=== PATIENT | male | born 1960 | race Caucasian/White ===

== ENCOUNTER 2022-06-24 17:19 | Emergency (ER) | payer OTHER, SELFPAY ==
[2022-06-24 17:37] VITALS: BP 177/75; PULSE 88; RESP 22; TEMP 36.7; O2SAT 95; BMI 28.2
--- NOTE | 2022-06-24 19:30 | XRR_ITS ---
PROCEDURE INFORMATION: Exam: XR Chest Exam date and time: 06/24/2022 7:41 PM Age: 61 years old Clinical indication: Other: High blood pressure; Prior surgery; Surgery type: Heart stents; Additional info: Cp TECHNIQUE: Imaging protocol: Radiologic exam of the chest. Views: 1 view. COMPARISON: CR XR chest 1V [id number] 11/27/2018 10:50 AM FINDINGS: Lungs: Unremarkable. No consolidation. Pleural spaces: Unremarkable. No pleural effusion. No pneumothorax. Heart/Mediastinum: Unremarkable. No cardiomegaly. Bones/joints: Unremarkable. XR/XR chest 1V portable [id number] IMPRESSION: No acute findings.
[2022-06-24 19:34] VITALS: BP 187/83; PULSE 73; RESP 15; O2SAT 96
[2022-06-24 19:58] LABS: Basophils % 0.4 %; Eosinophils # 0.2 10^3/uL (0.0-0.8); Eosinophils % 1.6 %; Hematocrit 45.3 % (42.0-52.0); Hemoglobin 14.8 g/dL (11.7-16.6); Lymphocytes # 1.3 10^3/uL (0.8-4.8); Lymphocytes % 12.3 %; Mean Corpuscular HGB Conc 32.7 g/dL (30.0-36.0); Mean Corpuscular Hemoglobin 29.3 pg (28.0-34.0); Mean Corpuscular Volume 89.7 fl (80-94); Mean Platelet Volume 8.7 fL (7.4-10.4); Monocytes # 0.7 10^3/uL (0.2-0.9); Monocytes % 6.8 %; Neutrophils # 8.38 10^3/uL (1.8-7.7); Neutrophils % 78.6 %; Nucleated Red Blood Cells % 0 %; Platelet Count 213 10^3/cmm (130-400); Red Blood Count 5.05 10^6/uL (4.1-5.3); Red Cell Distribution Width 12.4 % (12.1-15.1); White Blood Count 10.7 10^3/uL (4.0-10.0)
[2022-06-24 20:09] VITALS: BP 159/69; PULSE 67; O2SAT 98
[2022-06-24 20:14] LABS: INR 0.98 (0.8-1.2)
[2022-06-24 20:15] LABS: Partial Thromboplastin Time 27.8 SECONDS (23.9-36.7)
[2022-06-24 20:22] LABS: Troponin(5th) Baseline 12 ng/L (0-15)
[2022-06-24 20:30] LABS: Alanine Aminotransferase 15 U/L (0-41); Albumin Level 4.7 g/dL (3.5-5.2); Alkaline Phosphatase 51 U/L (40-130); Anion Gap 15.8 (5-19); Aspartate Amino Transferase 15 U/L (0-40); Blood Urea Nitrogen 10 mg/dL (8-23); Calcium 9.2 mg/dL (8.5-10.5); Carbon Dioxide 25 mmol/L (22-29); Chloride 105 mmol/L (98-107); Globulin 1.8 g/dL (1.3-4.6); Glomerular Filtration Rate 114.6 mL/min (90-130); Glucose 120 mg/dL (65-115); NT Pro B Type Natriuretic Pept 36 pg/mL (0-125); Osmolality Calculated 294 mOsm/kg (285-295); Potassium 3.8 mmol/L (3.5-5.1); Sodium 142 mmol/L (136-145); Thyroid Stimulating Hormone 1.92 uIU/mL (0.27-4.20); Total Bilirubin 0.4 mg/dL (0.15-1.2); Total Protein 6.5 g/dL (6.6-8.7)
--- NOTE | 2022-06-24 20:50 | ECG_ITS ---
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1960 Requested By: Griffin Briggs Order Number: [id number] Reading MD: CHAYA POSADA Measurements Intervals [place] Rate: 69 P: 55 [place]: 160 QRS: -36 QRSD: 153 T: 30 QT: 411 QTc: 441 Interpretive Statements SINUS RHYTHM LEFT AXIS DEVIATION [QRS AXIS < -30] RIGHT BUNDLE BRANCH BLOCK [120+ ms QRS DURATION, UPRIGHT V1, 40+ ms S IN I/aVL/V4/V5/V6] POSSIBLE ANTERIOR MYOCARDIAL INFARCTION , OF INDETERMINATE AGE [30 ms Q WAVE IN V3/V4, OR R < 0.2 mV IN V4] Compared to ECG 11/27/2018 10:27:06 Right bundle-branch block now present Myocardial infarct finding now present Sinus bradycardia no longer present Incomplete right bundle-branch block no longer present Electronically Signed On 06-24-2022 23:31:41 CDT by CHAYA POSADA [id number]
[2022-06-24 21:55] VITALS: BP 146/65; PULSE 63; O2SAT 94
--- NOTE | 2022-06-24 21:57 | W.ED.ARRPALP ---
HPI - Arrhythmia/Palpitations General: Chief Complaint: Arrhythmia/Palpitations Stated Complaint: high B/P, heart racing Time Seen by Provider: 06/24/22 20:11 Source: patient History of Present Illness: 61-year-old male with a prior history of coronary disease. He presents with feeling that his blood pressure was high, and some palpitations earlier in the evening. He denies chest pain. He denies significant shortness of breath. This happened to him 5 days ago as well, and seem to resolve on its own after his blood pressure medication. He took his blood pressure medication this evening as well, and is feeling better now. No more feelings of palpitations or flushing MD complaint: heart racing Onset (ago): hour(s) Duration: now resolved Severity: moderate Context: occurred during rest Associated symptoms: Deny cough, diaphoresis, nausea, pre-syncope, short of breath, syncope or vomiting Review of Systems Const: Denies: fever(s) or diaphoresis ENMT: Denies: throat pain Card: Reports: palpitations; Denies: chest pain, irregular heart rhythm, syncope or pre-syncope Resp: Denies: dyspnea, productive cough or non-productive cough GI: Denies: abdominal pain, nausea or vomiting : Denies: flank pain Neuro: Reports: headache(s) (Improved) Physical Exam Const: COMMON NORMALS: no acute distress GENERAL APPEARANCE: cooperative; not ill appearing and not frail appearing HENMT: COMMON NORMALS: normocephalic, atraumatic and Normal external nose present HEAD & SCALP: normocephalic and atraumatic FACE & SINUS: normal facial exam and face symmetric NOSE: Normal external nose present Eye: COMMON NORMALS: Equal, round and reactive pupils present and EOMs intact bilaterally PUPIL: Yes Equal, round and reactive pupils present Neck/C-Spine: GENERAL: Yes trachea midline Chest: CHEST: Yes Symmetrical chest wall rise Resp: COMMON NORMALS: normal respiratory effort, No retractions, No use of accessory muscles and clear to auscultation bilaterally AUSCULTATION: clear to auscultation bilaterally Cardio: COMMON NORMALS: regular rate and regular rhythm RATE: regular rate RHYTHM: regular rhythm GI: COMMON NORMALS: Normal to inspection, nondistended, normoactive bowel sounds present Extremity: COMMON NORMALS: no pedal edema Neuro: STEVEN COMA SCALE: document GCS findings Steven coma scale eye opening: Spontaneous Steven coma scale verbal response: Orientated [place] coma scale motor response: Obey commands [place] coma scale total score: 15 SENSORY EXAM: Yes extremities (intact) Psych: COMMON NORMALS: speech normal SPEECH: Yes normal speech Skin: COMMON NORMALS: no rashes or lesions noted GENERAL SKIN EXAM: no rashes or lesions noted Course Vital Signs: Vital signs: Vital Signs Temperature 98.0 F 06/24/22 17:37 Pulse Rate 66 06/24/22 22:52 Respiratory Rate 15 06/24/22 19:34 Blood Pressure 151/77 06/24/22 22:52 Pulse Oximetry 97 06/24/22 22:52 Oxygen Delivery Me thod 06/24/22 22:52 MDM - Arrhythmia/Palpitations Medical Decision Making 61-year-old male with a history of heart disease. He presents with palpitations. He never complained of chest pain. Palpitations have resolved at this point. He was hypertensive at home, currently blood pressure is 146/65. He is asymptomatic at this point. His chest x-ray is normal. His EKG has showed a sinus rhythm with essentially normal axis, but right bundle and left anterior fascicular blocks are present. No definite ST wave changes otherwise. He does have Q waves present anteriorly no EKGs available for prior comparison. His troponin however remain negative at 2 hours. With resolution in his symptoms, benign laboratory otherwise, he will be allowed home. He will be given amlodipine to take as needed for his blood pressure should he have problems with blood pressure. He is encouraged to follow-up. Lab Data 06/24/22 19:52 06/24/22 19:52 Radiology Impressions Chest X-Ray 06/24/22 19:30 IMPRESSION: No acute findings. Laboratory Results WBC 10.7 10^3/uL (4.0-10.0) H 06/24/22 19:52 RBC 5.05 10^6/uL (4.1-5.3) 06/24/22 19:52 Hgb 14.8 g/dL (11.7-16.6) 06/24/22 19:52 Hct 45.3 % (42.0-52.0) 06/24/22 19:52 MCV 89.7 fl (80-94) 06/24/22 19:52 MCH 29.3 pg (28.0-34.0) 06/24/22 19:52 MCHC 32.7 g/dL (30.0-36.0) 06/24/22 19:52 RDW 12.4 % (12.1-15.1) 06/24/22 19:52 Plt Count 213 10^3/cmm (130-400) 06/24/22 19:52 MPV 8.7 fL (7.4-10.4) 06/24/22 19:52 Neut % (Auto) 78.6 % 06/24/22 19:52 Lymph % (Auto) 12.3 % 06/24/22 19:52 [place] % (Auto) 6.8 % 06/24/22 19:52 Eos % (Auto) 1.6 % 06/24/22 19:52 Baso % (Auto) 0.4 % 06/24/22 19:52 Neut # (Auto) 8.38 10^3/uL (1.8-7.7) H 06/24/22 19:52 Lymph # (Auto) 1.3 10^3/uL (0.8-4.8) 06/24/22 19:52 [place] # (Auto) 0.7 10^3/uL (0.2-0.9) 06/24/22 19:52 Eos # (Auto) 0.2 10^3/uL (0.0-0.8) 06/24/22 19:52 Baso # (Auto) 0.0 10^3/uL (0.0-0.1) 06/24/22 19:52 Nucleated RBC % (auto) 0 % 06/24/22 19:52 Nucleated RBCs # 0.0 /100WBC 06/24/22 19:52 PT 13.30 SECONDS (12.1-14.9) 06/24/22 19:52 INR 0.98 (0.8-1.2) 06/24/22 19:52 APTT 27.8 SECONDS (23.9-36.7) 06/24/22 19:52 Sodium 142 mmol/L (136-145) 06/24/22 19:52 Potassium 3.8 mmol/L (3.5-5.1) 06/24/22 19:52 Chloride 105 mmol/L (98-107) 06/24/22 19:52 Carbon Dioxide 25 mmol/L (22-29) 06/24/22 19:52 Anion Gap 15.8 (5-19) 06/24/22 19:52 BUN 10 mg/dL (8-23) 06/24/22 19:52 Creatinine 0.7 mg/dL (0.7-1.2) 06/24/22 19:52 GFR Calculation 114.6 mL/min (90-130) 06/24/22 19:52 Glucose 120 mg/dL (65-115) H 06/24/22 19:52 Calculated Osmolality 294 mOsm/kg (285-295) 06/24/22 19:52 Calcium 9.2 mg/dL (8.5-10.5) 06/24/22 19:52 Total Bilirubin 0.4 mg/dL (0.15-1.2) 06/24/22 19:52 AST 15 U/L (0-40) 06/24/22 19:52 ALT 15 U/L (0-41) 06/24/22 19:52 Alkaline Phosphatase 51 U/L (40-130) 06/24/22 19:52 Troponin T Baseline 12 ng/L (0-15) 06/24/22 19:52 Troponin T 120 Minute 9.97 ng/L (0-15) 06/24/22 21:55 Delta Troponin T -2.03 ABS# (0-10) L 06/24/22 21:55 NT-Pro-B Natriuret Pep 36 pg/mL (0-125) 06/24/22 19:52 Total Protein 6.5 g/dL (6.6-8.7) L 06/24/22 19:52 Albumin 4.7 g/dL (3.5-5.2) 06/24/22 19:52 Globulin 1.8 g/dL (1.3-4.6) 06/24/22 19:52 TSH 1.92 uIU/mL (0.27-4.20) 06/24/22 19:52 Discharge Plan Discharge Patient Disposition: Home Clinical Impression: Palpitations, Hypertension Condition: Stable Prescriptions: New amlodipine 5 mg tablet 5 mg PO DAILY Qty: 30 0RF Discharge Orders: Discharge ED (Routine); Ordered 06/24/22 Ordered By: Griffin Campbell Referrals: Chrissie Stern MD [Primary Care Provider] - 1-3 days Patient Instructions: Heart Palpitations (ED), Hypertension (ED) Activity Restrictions/Additional Instructions: Check your blood pressure twice daily. If your numbers are staying above 150/90, start the medication you were prescribed. You do not have to take the medication if blood pressures are below this number. Wait at least an hour to an hour and a half before taking your blood pressure again following having to take the medication. Follow-up with your doctor this coming week. They may wish to perform more outpatient testing. Coding Level of Care Code ED Racing Manager for Dennise Trotter
[2022-06-24 22:19] LABS: Troponin 5 2HR 9.97 ng/L (0-15)
[2022-06-24 22:30] LABS: Troponin 5 2HR Delta -2.03 ABS# (0-10)
[2022-06-24 22:52] VITALS: BP 151/77; PULSE 66; O2SAT 97
== END 2022-06-24 23:15 | disposition home or self-care (01) ==
PROVIDERS: Emergency Provider Emergency Medicine; PCP Family Medicine
DX: I10 Essential (primary) hypertension (principal); R00.2 Palpitations; I25.10 Atherosclerotic heart disease of native coronary artery without angina pectoris; I45.10 Unspecified right bundle-branch block
CPT/HCPCS: 36415; 71045; 80053; 83880; 84443; 84484; 85025; 85610; 85730; 93005; 99285

== ENCOUNTER 2023-05-09 02:58 | Emergency (ER) | payer OTHER, SELFPAY ==
[2023-05-09 03:00] VITALS: BP 124/65; PULSE 75; RESP 12; TEMP 36.4; O2SAT 94; BMI 30.7
--- NOTE | 2023-05-09 03:03 | ECG_ITS ---
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 Measurements Intervals [place] Rate: 78 P: 68 MD: 165 QRS: -65 QRSD: 142 T: 28 QT: 405 QTc: 461 Interpretive Statements SINUS RHYTHM RIGHT BUNDLE BRANCH BLOCK [120+ ms QRS DURATION, UPRIGHT V1, 40+ ms S IN I/aVL/V4/V5/V6] LEFT ANTERIOR FASCICULAR BLOCK [QRS AXIS <= -45, QR IN I, RS IN II] POSSIBLE ANTERIOR MYOCARDIAL INFARCTION , OF INDETERMINATE AGE [30 ms Q WAVE IN V3/V4, OR R < 0.2 mV IN V4] MODERATE T-WAVE ABNORMALITY, CONSIDER LATERAL ISCHEMIA [-0.1+ mV T-WAVE IN I/aVL/V5/V6] Compared to ECG 06/24/2022 20:50:23 Left anterior fascicular block now present Left-axis deviation no longer present Myocardial infarct finding still present Electronically Signed On 05-09-2023 18:32:08 PROGRESSIVE DIE MAKER by Dustin Mejia M.D. [id number]
--- NOTE | 2023-05-09 03:05 | XRR_ITS ---
PROCEDURE INFORMATION: Exam: XR Chest Exam date and time: 05/09/2023 3:19 AM Age: 62 years old Clinical indication: Chest wall pain; Prior surgery; Surgery date: 6+ months; Surgery type: 3 stents in heart; Additional info: Chest pain TECHNIQUE: Imaging protocol: Radiologic exam of the chest. Views: 1 view. COMPARISON: CR XR chest 1V portable [id number] 06/24/2022 7:41 PM FINDINGS: Lungs: Unremarkable. No consolidation. Pleural spaces: Unremarkable. No pleural effusion. No pneumothorax. Heart/Mediastinum: Unremarkable. No cardiomegaly. Bones/joints: Unremarkable. XR/XR chest 1V portable [id number] IMPRESSION: No acute findings.
--- NOTE | 2023-05-09 03:06 | ED_ITS ---
HPI - Chest Pain 2 General: Chief Complaint: Chest Pain Stated Complaint: CP Time Seen by Provider: 05/09/23 03:05 History of Present Illness: Patient presents to the ER by EMS for chest pain. Patient woke up in the middle of the night about 1:00 in felt some epigastric pressure like he needed to burp. And then pressure started radiating down to his arms and legs. Patient stated that this was similar symptoms when he had a heart attack back around around 2002. Patient does have his couple stents from that heart attack. Patient used to see Dr. Gtz but has not seen him since 2007. Patient denies any nausea, vomiting, shortness of breath, diaphoresis. EMS gave the patient 1 nitro, 324 mg aspirin, and 1 inch Nitropaste. This reduced the pressure down from 7 to about a 2. Review of Systems 2 General: Reports: 10 or more systems reviewed and unremarkable except in HPI and below Physical Exam 2 Const: COMMON NORMALS: no acute distress, average body habitus, patient oriented x3, no limitations, healthy appearing, alert and well nourished HENMT: COMMON NORMALS: normocephalic, atraumatic, hearing grossly normal bilaterally, external ears normal, Normal external nose present, moist oral mucous membranes and oropharynx normal HEAD & SCALP: normocephalic and atraumatic NOSE: Normal external nose present EXTERNAL EAR: Yes external ears normal Neck/C-Spine: COMMON NORMALS: full ROM, no lymphadenopathy, supple, no meningeal signs, no JVD and Thyroid normal THYROID: Thyroid normal Chest: COMMONS NORMALS: normal inspection of the chest and normal palpation of entire chest wall Resp: COMMON NORMALS: normal respiratory effort, No retractions, No use of accessory muscles and clear to auscultation bilaterally AUSCULTATION: clear to auscultation bilaterally Cardio: COMMON NORMALS: no JVD, regular rate, regular rhythm, S1 normal heart sound present, S2 normal heart sound present, No gallops present (Cardio), No clicks present (Cardio), No murmurs present (Cardio) and No rub (Cardio) R ATE: regular rate RHYTHM: regular rhythm HEART SOUNDS: S1 normal heart sound present and S2 normal heart sound present GI: COMMON NORMALS: Normal to inspection, nondistended, normoactive bowel sounds present, Soft to palpation, non-tender, No hepatosplenomegaly present and no masses PALPATION: Yes Soft to palpation and Yes No hepatosplenomegaly present Extremity: NARRATIVE EXTREMITY EXAM: No edema bilateral lower extremities Neuro: COMMON NORMALS: patient oriented x3 SENSORIUM/ORIENTATION: Yes alert MENINGEAL SIGNS: Yes no meningeal signs Course 2 Vital Signs: Vital signs: Vital Signs Temperature 97.6 F 05/09/23 05:35 Pulse Rate 73 05/09/23 05:35 Respiratory Rate 16 05/09/23 05:35 Blood Pressure 130/65 05/09/23 05:35 Pulse Oximetry 95 05/09/23 05:35 Oxygen Delivery Me thod Room Air 05/09/23 03:00 MDM - Chest Pain Medical Decision Making Patient presents the ER with chest pain. Patient was worked up in a standard chest pain fashion with serial EKGs, serial lab work, chest x-ray, lab work showed potassium of 3.2 and blood glucose of 174, otherwise unremarkable serial troponins unremarkable, chest x-ray no acute findings. Patient be discharged home to follow-up with his PCP within next 7 days for further evaluation and treatment. Differential Diagnosis Unlikely acute massive pulmonary embolism, acute respiratory failure, acute myocardial infarction, cardiac arrest or sudden cardiac Medical Records I reviewed the patient's medical records. Lab Data I reviewed the patient's lab results. 05/09/23 02:45 05/09/23 02:45 Radiology Impressions Chest X-Ray 05/09/23 03:05 IMPRESSION: No acute findings. Laboratory Results WBC 5.31 10^3/uL (3.29-11.43) 05/09/23 02:45 RBC 5.62 10^6/uL (3.85-5.65) 05/09/23 02:45 Hgb 15.90 g/dL (11.27-16.99) 05/09/23 02:45 Hct 46.2 % (37-53) 05/09/23 02:45 MCV 82.2 fl (82-101) 05/09/23 02:45 MCH 28.3 pg (27-33) 05/09/23 02:45 MCHC 34.4 g/dL (30-55) 05/09/23 02:45 RDW 13.8 % (12.1-15.1) 05/09/23 02:45 Plt Count 230 10^3/cmm (157-399) 05/09/23 02:45 MPV 8.4 fL (7.4-10.4) 05/09/23 02:45 Neut % (Auto) 49.9 % 05/09/23 02:45 Lymph % (Auto) 33.5 % 05/09/23 02:45 [place] % (Auto) 9.6 % 05/09/23 02:45 Eos % (Auto) 5.3 % 05/09/23 02:45 Baso % (Auto) 0.9 % 05/09/23 02:45 Neut # (Auto) 2.65 10^3/uL (1.8-7.7) 05/09/23 02:45 Lymph # (Auto) 1.8 10^3/uL (0.8-4.8) 05/09/23 02:45 [place] # (Auto) 0.5 10^3/uL (0.2-0.9) 05/09/23 02:45 Eos # (Auto) 0.3 10^3/uL (0.0-0.8) 05/09/23 02:45 Baso # (Auto) 0.1 10^3/uL (0.0-0.1) 05/09/23 02:45 Nucleated RBC % (auto) 0 % 05/09/23 02:45 Nucleated RBCs # 0.0 /100WBC 05/09/23 02:45 PT 12.00 SECONDS (12.1-14.9) L 05/09/23 02:45 INR 0.86 (0.8-1.2) 05/09/23 02:45 Sodium 142 mmol/L (136-145) 05/09/23 02:45 Potassium 3.2 mmol/L (3.5-5.1) L 05/09/23 02:45 Chloride 103 mmol/L (98-107) 05/09/23 02:45 Carbon Dioxide 25 mmol/L (22-29) 05/09/23 02:45 Anion Gap 17.2 (5-19) 05/09/23 02:45 BUN 12 mg/dL (8-23) 05/09/23 02:45 Creatinine 0.8 mg/dL (0.7-1.2) 05/09/23 02:45 GFR Calculation 98.0 mL/min (90-130) 05/09/23 02:45 Glucose 174 mg/dL (65-115) H 05/09/23 02:45 Calculated Osmolality 298 mOsm/kg (285-295) H 05/09/23 02:45 Calcium 9.5 mg/dL (8.5-10.5) 05/09/23 02:45 Total Bilirubin 0.5 mg/dL (0.15-1.2) 05/09/23 02:45 AST 24 U/L (0-40) 05/09/23 02:45 ALT 25 U/L (0-41) 05/09/23 02:45 Alkaline Phosphatase 53 U/L (40-130) 05/09/23 02:45 Troponin T Baseline 7 ng/L (0-15) 05/09/23 02:45 Troponin T 120 Minute 7.65 ng/L (0-15) 05/09/23 04:41 Delta Troponin T 0.65 ABS# (0-10) 05/09/23 04:41 Total Protein 7.5 g/dL (6.6-8.7) 05/09/23 02:45 Albumin 4.7 g/dL (3.5-5.2) 05/09/23 02:45 Globulin 2.8 g/dL (1.3-4.6) 05/09/23 02:45 All radiology interpretation(s) finalized by discharge EKG Data EKG 1: I personally reviewed and interpreted this EKG as follows: EKG interpretation date: 05/09/23 EKG interpretation time: 03:03 Prior EKG tracings: available for review Interpretation: EKG showed ventricular rate 78 bpm, TN interval 165, QRS duration 142, QTc of 438, sinus rhythm, right bundle branch block, left anterior fascicular block, EKG 2: I personally reviewed and interpreted this EKG as follows: EKG interpretation date: 05/09/23 EKG interpretation time: 04:39 Prior EKG tracings: available for review Interpretation: Ventricular rate 71 bpm, TN interval 162, QRS duration 151, QTc of 435, sinus rhythm, right bundle branch block, left anterior fascicular block Discharge Plan Discharge Patient Disposition: Home Clinical Impression: Atypical chest pain Condition: Stable Prescriptions: No Action amlodipine 5 mg tablet 5 mg PO DAILY Qty: 30 0RF Discharge Orders: Discharge ED (Routine); Ordered 05/09/23 Ordered By: Uli Ackerman Referrals: Chrissie Stern MD [Primary Care Provider] - 1 week Patient Instructions: Chest Pain (ED) Activity Restrictions/Additional Instructions: Your evaluation in ER did not show any cardiac cause for your chest pain. Is thought to be noncardiac in nature however you may benefit from further workup. Please follow-up with your family practice physician within the next 7 days for further evaluation and treatment. Coding Level of Care Code ED Fence Installer Foreman for Dennise Trotter
[2023-05-09 03:15] LABS: Basophils # 0.1 10^3/uL (0.0-0.1); Basophils % 0.9 %; Eosinophils # 0.3 10^3/uL (0.0-0.8); Eosinophils % 5.3 %; Hematocrit 46.2 % (37-53); Lymphocytes # 1.8 10^3/uL (0.8-4.8); Lymphocytes % 33.5 %; Mean Corpuscular HGB Conc 34.4 g/dL (30-55); Mean Corpuscular Hemoglobin 28.3 pg (27-33); Mean Corpuscular Volume 82.2 fl (82-101); Mean Platelet Volume 8.4 fL (7.4-10.4); Monocytes # 0.5 10^3/uL (0.2-0.9); Monocytes % 9.6 %; Neutrophils # 2.65 10^3/uL (1.8-7.7); Neutrophils % 49.9 %; Nucleated Red Blood Cells % 0 %; Platelet Count 230 10^3/cmm (157-399); Red Blood Count 5.62 10^6/uL (3.85-5.65); Red Cell Distribution Width 13.8 % (12.1-15.1); White Blood Count 5.31 10^3/uL (3.29-11.43)
[2023-05-09 03:25] LABS: INR 0.86 (0.8-1.2)
[2023-05-09 03:33] LABS: Troponin(5th) Baseline 7 ng/L (0-15)
[2023-05-09 03:36] LABS: Alanine Aminotransferase 25 U/L (0-41); Albumin Level 4.7 g/dL (3.5-5.2); Alkaline Phosphatase 53 U/L (40-130); Anion Gap 17.2 (5-19); Aspartate Amino Transferase 24 U/L (0-40); Blood Urea Nitrogen 12 mg/dL (8-23); Calcium 9.5 mg/dL (8.5-10.5); Carbon Dioxide 25 mmol/L (22-29); Chloride 103 mmol/L (98-107); Globulin 2.8 g/dL (1.3-4.6); Glucose 174 mg/dL (65-115); Osmolality Calculated 298 mOsm/kg (285-295); Potassium 3.2 mmol/L (3.5-5.1); Sodium 142 mmol/L (136-145); Total Bilirubin 0.5 mg/dL (0.15-1.2); Total Protein 7.5 g/dL (6.6-8.7)
[2023-05-09 04:14] VITALS: BP 119/59; PULSE 73; RESP 16; O2SAT 94
[2023-05-09 04:54] VITALS: BP 130/65; PULSE 73; RESP 16; O2SAT 95
--- NOTE | 2023-05-09 05:05 | ECG_ITS ---
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 Measurements Intervals [place] Rate: 71 P: 55 [place]: 162 QRS: -61 QRSD: 151 T: 12 QT: 413 QTc: 449 Interpretive Statements SINUS RHYTHM RIGHT BUNDLE BRANCH BLOCK [120+ ms QRS DURATION, UPRIGHT V1, 40+ ms S IN I/aVL/V4/V5/V6] LEFT ANTERIOR FASCICULAR BLOCK [QRS AXIS <= -45, QR IN I, RS IN II] POSSIBLE ANTEROSEPTAL MYOCARDIAL INFARCTION , OF INDETERMINATE AGE [30 ms Q WAVE IN V1-V4] MODERATE T-WAVE ABNORMALITY, CONSIDER LATERAL ISCHEMIA [-0.1+ mV T-WAVE IN I/aVL/V5/V6] Compared to ECG 06/24/2022 20:50:23 Left anterior fascicular block now present T-wave abnormality now present Possible ischemia now present Left-axis deviation no longer present Myocardial infarct finding still present Electronically Signed On 05-09-2023 18:34:53 POLICY INTERN by Dustin Mejia M.D. [id number]
[2023-05-09 05:09] LABS: Troponin 5 2HR 7.65 ng/L (0-15); Troponin 5 2HR Delta 0.65 ABS# (0-10)
[2023-05-09 05:35] VITALS: BP 130/65; PULSE 73; RESP 16; TEMP 36.4; O2SAT 95
== END 2023-05-09 05:36 | disposition home or self-care (01) ==
PROVIDERS: Emergency Provider Emergency Medicine; PCP Family Medicine
DX: R07.89 Other chest pain (principal)
CPT/HCPCS: 71045; 80053; 84484; 85025; 85610; 93005; 99285

== ENCOUNTER 2024-08-21 11:57 | Emergency (ER) | payer OTHER, SELFPAY ==
[2024-08-21] VITALS (10 sets, daily range): BP systolic 136–174; BP diastolic 63–99; PULSE 57–71; RESP 17; TEMP 36.6; O2SAT 94–98; BMI 33.9
--- NOTE | 2024-08-21 12:07 | ECG_ITS ---
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: : 1960 Requested By: Carlos Enrique Mulligan Order Number: [id number] Reading MD: CHAYA POSADA Measurements Intervals [place] Rate: 68 P: 62 [place]: 165 QRS: -80 QRSD: 154 T: 70 QT: 411 QTc: 439 Interpretive Statements SINUS RHYTHM RIGHT BUNDLE BRANCH BLOCK [120+ ms QRS DURATION, UPRIGHT V1, 40+ ms S IN I/aVL/V4/V5/V6] LEFT ANTERIOR FASCICULAR BLOCK [QRS AXIS <= -45, QR IN I, RS IN II] POSSIBLE ANTERIOR MYOCARDIAL INFARCTION , OF INDETERMINATE AGE [30 ms Q WAVE IN V3/V4, OR R < 0.2 mV IN V4] Compared to ECG 05/09/2023 04:39:21 T-wave abnormality no longer present Possible ischemia no longer present Myocardial infarct finding still present Electronically Signed On 08-21-2024 23:27:41 CDT by CHAYA POSADA [email or web address]
--- NOTE | 2024-08-21 16:09 | XRR_ITS ---
PROCEDURE INFORMATION: Exam: XR Chest Exam date and time: 08/21/2024 4:10 PM Age: 63 years old Clinical indication: Pain; Chest pressure; Prior surgery; Surgery date: 6+ months; Surgery type: Cardiac stents; Additional info: Chest pain TECHNIQUE: Imaging protocol: Radiologic exam of the chest. Views: 1 view. COMPARISON: CR XR chest 1V portable [id number] 05/09/2023 3:19 AM FINDINGS: Lungs: Unremarkable. No consolidation. Pleural spaces: Unremarkable. No pleural effusion. No pneumothorax. Heart/Mediastinum: Unremarkable. No cardiomegaly. Bones/joints: Unremarkable. XR/XR chest 1V portable [id number] IMPRESSION: No acute findings.
[2024-08-21] MEDS: lidocaine 2% viscous 15 ML, aluminum-mag hydrox-simethicon 30 ML, sucralfate oral liq 1 GM PO (16:26)
--- NOTE | 2024-08-21 16:30 | CTR_ITS ---
PROCEDURE INFORMATION: Exam: CT Abdomen And Pelvis Without Contrast Exam date and time: 08/21/2024 4:47 PM Age: 63 years old Clinical indication: Abdominal pain; Additional info: Belly pain, increased burping TECHNIQUE: Imaging protocol: Computed tomography of the abdomen and pelvis without contrast. Radiation optimization: All CT scans at this facility use at least one of these dose optimization techniques: automated exposure control; mA and/or kV adjustment per patient size (includes targeted exams where dose is matched to clinical indication); or iterative reconstruction. COMPARISON: CR XR chest 1V portable [id number] 08/21/2024 4:10 PM RADIATION DOSE METRICS: Total DLP (mGy-cm): 798.66 FINDINGS: Liver: Hepatic steatosis. No significant focal hepatic lesions. Gallbladder and biliary ducts: Normal. No calcified stones. No ductal dilation. Pancreas: Normal. No ductal dilation. Spleen: Normal. No splenomegaly. Adrenal glands: Normal. No mass. Kidneys and ureters: Punctate nonobstructing right intrarenal stone measuring 3 mm. Simple cysts arising from the superior pole of the right kidney measuring up to 4.2 cm. No hydronephrosis. No suspicious renal masses. Stomach and bowel: Normal caliber of the bowel without evidence of obstruction. No focal bowel wall thickening or inflammation. Sigmoid colon diverticulosis without CT evidence of acute diverticulitis. Anastomotic suture line at the distal sigmoid colon. Appendix: Appendix not visualized and is likely surgically absent. Intraperitoneal space: Unremarkable. No free air. No significant fluid collection. Vasculature: Unremarkable. No abdominal aortic aneurysm. Lymph nodes: Unremarkable. No enlarged lymph nodes. Urinary bladder: Unremarkable as visualized. Reproductive: Nonspecific prostatic enlargement. Bones/joints: Unremarkable. No acute fracture. Soft tissues: Unremarkable. CT/CT abdomen pelvis wo con [id number] IMPRESSION: 1. No acute cardiopulmonary findings radiographically. 2. Sigmoid colon diverticulosis without CT evidence of acute diverticulitis. 3. Nonspecific prostatic enlargement. 4. Punctate nonobstructing right intrarenal stone measuring 3 mm. 5. Simple cysts arising from the superior pole of the right kidney measuring up to 4.2 cm. 6. Hepatic steatosis. COMMENTS: Consistent with the [employer]'s Incidental Findings Committee white paper (J Am Jl Radiol 2018): Any incidental renal lesion less than 1 cm or classified as too small to characterize, or any incidental cystic renal lesion characterized as simple-appearing, is likely benign. No follow-up imaging is recommended for these lesions per consensus recommendations based on imaging criteria.
[2024-08-21 16:33] LABS: Basophils # 0.1 10^3/uL (0.0-0.1); Basophils % 0.8 %; Eosinophils # 0.2 10^3/uL (0.0-0.8); Eosinophils % 2.6 %; Hematocrit 48.9 % (37-53); Lymphocytes # 2.6 10^3/uL (0.8-4.8); Lymphocytes % 33.8 %; Mean Corpuscular HGB Conc 32.9 g/dL (30-55); Mean Corpuscular Hemoglobin 29.5 pg (27-33); Mean Corpuscular Volume 89.6 fl (82-101); Monocytes # 0.5 10^3/uL (0.2-0.9); Monocytes % 6.5 %; Neutrophils # 4.22 10^3/uL (1.8-7.7); Neutrophils % 55.9 %; Nucleated Red Blood Cells % 0 %; Platelet Count 198 10^3/cmm (157-399); Red Blood Count 5.46 10^6/uL (3.85-5.65); Red Cell Distribution Width 12.7 % (12.1-15.1); White Blood Count 7.55 10^3/uL (3.29-11.43)
[2024-08-21 16:57] LABS: Anion Gap 20.1 (5-19); Blood Urea Nitrogen 13 mg/dL (8-23); Calcium 9.5 mg/dL (8.5-10.5); Carbon Dioxide 21 mmol/L (22-29); Chloride 105 mmol/L (98-107); Creatinine Clr Calc Pharmacy 116.6941; Glomerular Filtration Rate 113.9 mL/min (90-130); Glucose 87 mg/dL (65-115); Osmolality Calculated 293 mOsm/kg (285-295); Potassium 4.1 mmol/L (3.5-5.1); Sodium 142 mmol/L (136-145); Troponin(5th) Baseline 41 ng/L (0-15)
--- NOTE | 2024-08-21 18:09 | ECG_ITS ---
[employer] ([employer] Test Date: 2024-08-21 Pat Name: Carlin Dumas Department: Room: Gender: Male [employer]: : 1960 Requested By: Travis Mcgill Order Number: [id number] Keith MD: CHAYA POSADA Measurements Intervals [place] Rate: 54 P: 66 MT: 171 QRS: -75 QRSD: 160 T: 62 QT: 446 QTc: 425 Interpretive Statements SINUS BRADYCARDIA RIGHT BUNDLE BRANCH BLOCK [120+ ms QRS DURATION, UPRIGHT V1, 40+ ms S IN I/aVL/V4/V5/V6] LEFT ANTERIOR FASCICULAR BLOCK [QRS AXIS <= -45, QR IN I, RS IN II] POSSIBLE ANTERIOR MYOCARDIAL INFARCTION , OF INDETERMINATE AGE [30 ms Q WAVE IN V3/V4, OR R < 0.2 mV IN V4] Compared to ECG 08/21/2024 12:07:04 Sinus rhythm no longer present Myocardial infarct finding still present Electronically Signed On 08-21-2024 23:36:16 CDT by CHAYA POSADA [email or web address]
[2024-08-21 18:24] LABS: Troponin 5 2HR 40.21 ng/L (0-15)
[2024-08-21 18:27] LABS: Troponin 5 2HR Delta -0.79 ABS# (0-10)
--- NOTE | 2024-08-21 19:54 | W.ED.CHESTPA ---
HPI - Chest Pain General: Chief Complaint: Chest Pain Stated Complaint: cp, weak Time Seen by Provider: 08/21/24 16:08 Source: patient Mode of arrival: ambulatory Limitations: no limitations History of Present Illness: Left lower chest/epigastric pain feels like trapped gas. Radiate did to the left arm. Been going on for a few days as far as radiation to the arm. And hurting in the upper abdomen for couple weeks. Does have to take laxatives daily due to previous colon surgery. Related Data Home Medications ?Medication ?Instructions ?Recorded ?Confirmed fish oil-dha-epa 1 tab PO DAILY 05/23/23 08/21/24 metoprolol tartrate 25 mg tablet 12.5 mg PO BID 05/23/23 08/21/24 pantoprazole 40 mg tablet,delayed 40 mg PO DAILY 05/23/23 08/21/24 release Previous Rx's ?Medication ?Instructions ?Recorded dicyclomine 10 mg capsule 10 mg PO TID PRN abdominal pain 08/21/24 #60 caps lisinopril 10 mg tablet 10 mg PO DAILY HTN #30 tabs 08/21/24 Allergies Allergy/AdvReac Type Severity Reaction Status Date / Time fexofenadine (From Hilda-D) Allergy ADR/ALGY-Pa Verified 05/23/23 08:55 lpitations midazolam (From Versed) Allergy ADR-Headach Verified 05/23/23 08:55 e pseudoephedrine (From Allergy ADR/ALGY-Pa Verified 05/23/23 08:55 Hilad-D) lpitations Slfiqlx-HOD-SdS Reductase Allergy ADR-Cramping Verified 05/23/23 08:55 Inhibitor of the Muscles Review of Systems General: Reports: 10 or more systems reviewed and unremarkable except in HPI and below PFSH ED PFSH: Medical History (Updated 08/21/24 @ 19:59 by Travis Mcgill MD) Osteoarthritis of hands, bilateral Raised antibody titer Positive INSTRUCTOR BRIDGE ab Positive GABRIEL (antinuclear antibody) History of hypertension History of hypercholesterolemia GERD (gastroesophageal reflux disease) Surgical History (Updated 05/23/23 @ 09:53 by Braeden Clay MD) H/O heart surgery 3 stents History of colon resection Family History (Updated 05/23/23 @ 09:04 by Angélica Marroquin LPN) Other CAD (coronary artery disease) Cancer Heart disease Hypertension Migraines Rheumatoid arthritis Denies family history of Lupus (systemic lupus erythematosus) Lung disease Stroke Physical Exam Const: COMMON NORMALS: no acute distress, average body habitus, patient oriented x3, healthy appearing, alert and well nourished GENERAL APPEARANCE: well kempt and well developed HENMT: COMMON NORMALS: normocephalic, atraumatic, external ears normal and moist oral mucous membranes HEAD & SCALP: normocephalic and atraumatic EXTERNAL EAR: Yes external ears normal Eye: COMMON NORMALS: Equal, round and reactive pupils present, EOMs intact bilaterally and conjunctivae normal CONJUNCTIVA: Yes conjunctivae normal PUPIL: Yes Equal, round and reactive pupils present Neck/C-Spine: COMMON NORMALS: full ROM, no lymphadenopathy and supple Chest: CHEST: Yes Symmetrical chest wall rise and No Surgical scars present (Chest) Resp: COMMON NORMALS: normal respiratory effort, No retractions, No use of accessory muscles and clear to auscultation bilaterally AUSCULTATION: clear to auscultation bilaterally Cardio: COMMON NORMALS: regular rate, regular rhythm, S1 normal heart sound present, S2 normal heart sound present, No gallops present (Cardio), No clicks present (Cardio), No murmurs present (Cardio) and No rub (Cardio) RATE: regular rate RHYTHM: regular rhythm HEART SOUNDS: S1 normal heart sound present, S2 normal heart sound present and no murmurs PERIPHERAL PULSES: other (Radial pulses 2+ and symmetric) GI: COMMON NORMALS: Soft to palpation, non-tender and no masses INSPECTION: No abdominal distension PALPATION: Yes Soft to palpation, No Guarding due to palpation present (GI) and No Rebound tenderness present : COMMON NORMALS: Yes no CVA tenderness BLADDER/KIDNEY EXAM: Yes no CVA tenderness Back/Pelvis: COMMON NORMALS: no CVA tenderness Extremity: COMMON NORMALS: normal to inspection, full ROM, capillary refill normal and no clubbing, cyanosis or edema Neuro: COMMON NORMALS: patient oriented x3 SENSORIUM/ORIENTATION: Yes alert Psych: APPEARANCE: Yes well kempt Skin: COMMON NORMALS: no rashes or lesions noted, no wounds, turgor normal and no jaundice GENERAL SKIN EXAM: no rashes or lesions noted and turgor normal Course Vital Signs: Vital signs: Vital Signs Temperature 97.9 F 08/21/24 12:08 Pulse Rate 58 L 08/21/24 20:17 Respiratory Rate 17 08/21/24 12:08 Blood Pressure 162/86 08/21/24 20:17 Pulse Oximetry 98 08/21/24 20:17 Oxygen Delivery Me thod Room Air 08/21/24 19:30 MDM - Chest Pain Medical Decision Making Troponin in the indeterminate range and stable x 2. Patient had much improvement with GI cocktail. EKGs have been unremarkable on repeat. Will treat patient for abdominal cramping. CT of the abdomen pelvis is also unremarkable. Patient is in agreement. If pain gets worse he is to come back. He understands this and has expressed understanding of treatment plan. EKG: Performed at 12:07 PM, reviewed by me at 1540. It was apparently brought to other provider shortly after being done. EKG shows sinus bradycardia, rate in the 50s with right bundle branch block and a left anterior fascicular block. Normal NJ and QTc intervals. No ST elevation. No Sgarbossa's criteria present. EKG 2: Performed at 1831, reviewed by me at 1836, stable compared to previous, no changes. Rate of 54, NJ interval of 171, QTc of 432. Medical Records I reviewed the patient's medical records. Lab Data I reviewed the patient's lab results. 08/21/24 16:27 08/21/24 16:27 Radiology Impressions Chest X-Ray 08/21/24 16:09 IMPRESSION: No acute findings. Abdomen/Pelvis CT 08/21/24 16:30 IMPRESSION: 1. No acute cardiopulmonary findings radiographically. 2. Sigmoid colon diverticulosis without CT evidence of acute diverticulitis. 3. Nonspecific prostatic enlargement. 4. Punctate nonobstructing right intrarenal stone measuring 3 mm. 5. Simple cysts arising from the superior pole of the right kidney measuring up to 4.2 cm. 6. Hepatic steatosis. COMMENTS: Consistent with the [employer]'s Incidental Findings Committee white paper (J Am Jl Radiol 2018): Any incidental renal lesion less than 1 cm or classified as too small to characterize, or any incidental cystic renal lesion characterized as simple-appearing, is likely benign. No follow-up imaging is recommended for these lesions per consensus recommendations based on imaging criteria. Laboratory Results WBC 7.55 10^3/uL (3.29-11.43) 08/21/24 16:27 RBC 5.46 10^6/uL (3.85-5.65) 08/21/24 16: Hgb 16.10 g/dL (11.27-16.99) 08/21/24 16: Hct 48.9 % (37-53) 08/21/24 16: MCV 89.6 fl (82-101) 08/21/24 16: MCH 29.5 pg (27-33) 08/21/24 16: MCHC 32.9 g/dL (30-55) 08/21/24 16: RDW 12.7 % (12.1-15.1) 08/21/24 16: Plt Count 198 10^3/cmm (157-399) 08/21/24 16: MPV 9.0 fL (7.4-10.4) 08/21/24 16: Neut % (Auto) 55.9 % 08/21/24 16: Lymph % (Auto) 33.8 % 08/21/24 16: Mcdowell % (Auto) 6.5 % 08/21/24 16: Eos % (Auto) 2.6 % 08/21/24 16: Baso % (Auto) 0.8 % 08/21/24 16: Neut # (Auto) 4.22 10^3/uL (1.8-7.7) 08/21/24 16: Lymph # (Auto) 2.6 10^3/uL (0.8-4.8) 08/21/24 16: Mcdowell # (Auto) 0.5 10^3/uL (0.2-0.9) 08/21/24 16: Eos # (Auto) 0.2 10^3/uL (0.0-0.8) 08/21/24 16: Baso # (Auto) 0.1 10^3/uL (0.0-0.1) 08/21/24 16: Nucleated RBC % (auto) 0 % 08/21/24 16: Nucleated RBCs # 0.0 /100WBC 08/21/24 16: Sodium 142 mmol/L (136-145) 08/21/24 16: Potassium 4.1 mmol/L (3.5-5.1) 08/21/24 16:27 Chloride 105 mmol/L (98-107) 08/21/24 16:27 Carbon Dioxide 21 mmol/L (22-29) L 08/21/24 16:27 Anion Gap 20.1 (5-19) H 08/21/24 16:27 BUN 13 mg/dL (8-23) 08/21/24 16:27 Creatinine 0.7 mg/dL (0.7-1.2) 08/21/24 16:27 GFR Calculation 113.9 mL/min (90-130) 08/21/24 16:27 Glucose 87 mg/dL (65-115) 08/21/24 16:27 Calculated Osmolality 293 mOsm/kg (285-295) 08/21/24 16:27 Calcium 9.5 mg/dL (8.5-10.5) 08/21/24 16:27 Troponin T Baseline 41 ng/L (0-15) H 08/21/24 16:27 Troponin T 120 Minute 40.21 ng/L (0-15) H 08/21/24 17:56 Delta Troponin T -0.79 ABS# (0-10) L 08/21/24 17:56 All radiology interpretation(s) finalized by discharge ED provider radiology interpretation(s): No acute finding on CT abdomen pelvis per my review. Discharge Plan Discharge Patient Disposition: Home Clinical Impression: Abdominal cramping, Hypertension Condition: Stable Prescriptions: New dicyclomine 10 mg capsule 10 mg PO TID PRN (Reason: abdominal pain) Qty: 60 0RF lisinopril 10 mg tablet 10 mg PO DAILY Qty: 30 0RF No Action metoprolol tartrate 25 mg tablet 12.5 mg PO BID pantoprazole 40 mg tablet,delayed release (DR/EC) 40 mg PO DAILY fish oil-dha-epa 1 tab PO DAILY Discharge Orders: Discharge ED (Routine); Ordered 08/21/24 Ordered By: Travis Mcgill Referrals: Chrissie Stern MD [Primary Care Provider, Family Practice] Patient Instructions: Abdominal Pain (ED), Hypertension (ED) Print Language: Tristanian Coding Level of Care Code ED Gas Brazer for Mageng Sergo
== END 2024-08-21 20:18 | disposition home or self-care (01) ==
PROVIDERS: Emergency Provider Emergency Medicine; PCP Family Medicine
DX: R10.9 Unspecified abdominal pain (principal); I10 Essential (primary) hypertension
CPT/HCPCS: 36415; 71045; 74176; 80048; 84484; 85025; 93005; 99285; J9999